=== PATIENT | female | born 1960 | race American Indian/Alaskan Native ===

== ENCOUNTER 2020-02-07 10:47 | Outpatient (CLI) | payer OTHER, MEDICARE ==
--- NOTE | 2020-02-07 13:02 | Cat Scan Report ---
. CT neck wo con INDICATION / CLINICAL INFORMATION: 59 years Female; PAIN IN THROAT. TECHNIQUE: Contiguous thin cut axial images obtained through the neck following IV contrast. Sagittal and costa l reconstructions performed by the technologist. All CT scans at this location are performed using CT dose reduction for ALARA by means of automated exposure control. COMPARISON: None available. FINDINGS: MUCOSAL SPACE: No definitive lesions are seen involving the oral pharyngeal soft tissues on this nonc ontrast study. The epiglottis is appropriate in size. The laryngeal structures are symmetric. LYMPH NODES: There are scattered cervical lymph nodes, most notably within the jugulodigastric region with a node measuring 0.8 cm in short axis dimension on the left. These nodes are most likely reacti ve. SALIVARY GLANDS: The visualized parotid and submandibular glands demonstrate fairly symmetric attenua tion without calcification or stiffness surrounding inflammatory changes. THYROID GLAND: The thyroid gland appears appropriate in size and contour. There is beam hardening art ifact at this location given the patient's body habitus. PARANASAL SINUSES: There are small a foci of opacification along the anterior right sphenoid and late ral left maxillary sinuses indicative of small, subcentimeter retention cysts or polyps. Minimal muco zack thickening is noted within the ethmoid air cells. SPINE: There is slight reversal of the cervical lordosis with multilevel degenerative disc changes. VASCULAR STRUCTURES: There is focus of atherosclerotic calcification involving the visualized right p roximal ICA. There is no significant dilatation or evidence of wall thickening involving the visualized upper esop hagus. No definitive fluid collections are appreciated. IMPRESSION: 1. There is no clear CT evidence of significant inflammatory changes or focal lesions involving the s oft tissues of the neck on this noncontrast study. Signer Name: Shen Patel MD Signed: 02/07/2020 12:57 PM Workstation Name: [id number]
== END 2020-02-07 10:48 | disposition home or self-care (01) ==
LOC: CT 10:47
DX: M47.812 Spondylosis without myelopathy or radiculopathy, cervical region (principal); R22.1 Localized swelling, mass and lump, neck
CPT/HCPCS: 70490